=== PATIENT | female | born 1980 | race Hispanic/Latino ===

== ENCOUNTER 2018-03-04 22:13 | Emergency (ER) | payer BC ==
[2018-03-04 22:24] VITALS: O2SAT 100
[2018-03-05 00:25] LABS: ALB/GLOB RATIO 1.4 (1.0-2.1); ALBUMIN 4.5 g/dL (3.5-5.0); ALT/SGPT 17 U/L (9-52); AST/SGOT 24 U/L (14-36); BASO # 0.1 K/uL (0.0-0.2); BASO % 0.8 % (0.0-2.0); BLOOD UREA NITROGEN 11 mg/dl (7-17); CALCIUM 9.5 mg/dL (8.4-10.2); EOS # 0.1 K/uL (0.0-0.7); EOS % 0.8 % (0.0-4.0); GFR NON-AFRICAN AMERICAN > 60; HEMOGLOBIN 14.6 g/dL (12.0-16.0); LYMPH # 2.1 K/uL (1.0-4.3); LYMPH % 28.4 % (20.0-40.0); MEAN CELL VOLUME 98.8 fl (81.0-99.0); MEAN CORPUSCULAR HEMOGLOBIN 33.8 pg (27.0-31.0); MEAN CORPUSCULAR HGB CONC 34.2 g/dL (33.0-37.0); MEAN PLATELET VOLUME 8.5 fl (7.2-11.7); MONO # 0.7 K/uL (0.0-0.8); MONO % 9.1 % (0.0-10.0); NEUT # 4.5 K/uL (1.8-7.0); NEUT % 60.9 % (50.0-75.0); RBC 4.31 Mil/uL (3.80-5.20); RED CELL DISTRIBUTION WIDTH 12.7 % (11.5-14.5); WHITE BLOOD COUNT 7.4 K/uL (4.8-10.8)
[2018-03-05 00:27] LABS: INR 0.9; PROTHROMBIN TIME 10.3 Seconds (9.8-13.1)
[2018-03-05 00:30] LABS: PARTIAL THROMBOPLASTIN TIME 24.8 Seconds (25.6-37.1)
--- NOTE | 2018-03-05 01:25 | ED PDOC ---
Syncope/Near Syncope/Dizziness Time Seen by Provider: 03/04/18 22:56 Chief Complaint (Nursing): Syncope Chief Complaint (Provider): Syncope, Headache History Per: Patient History/Exam Limitations: no limitations Onset/Duration Of Symptoms: Hrs (x2) Current Symptoms Are (Timing): Still Present Number Of Syncopal Episodes: 1 Fall Associated With With Symptoms: No Pain Scale Rating Of: 10 Additional Complaint(s): Debbie Vargas is a 38 year old female, with a past medical history of Hypokalemia, who presents to the emergency department for evaluation of a frontal headache ongoing for the last x2 hrs. Patient describes it as a throbbing pressure and associated with photophobia, nausea, and blurred vision. Patient states blurred vision resolved upon arrival in ED. Patient reports she was at a bar with and after drinking x2 glasses of wine she developed sudden onset of symptoms. She felt faint and her states that she syncopized into his arms for 20 to 30 seconds and then came back to it. She reports a history of similar symptoms x15 years ago, she was evaluated at the time and was told everything was unremarkable except for low potassium levels. She took no medications prior to arrival. Patient states symptoms have worsened in the last x30 minutes. She denies any fever, chills, history of recurrent headaches, dizziness, chest pain, shortness of breath, abdominal pain, diarrhea , neck pain or stiffness, or family history of aneurysms. No further medical complaints. LMP: 02/23 PMD: None provided. Past Medical History Reviewed: Historical Data, Nursing Documentation, Vital Signs Vital Signs: Last Vital Signs Temp 99.1 F 03/04/18 22:18 Pulse 78 03/04/18 22:18 Resp 17 03/04/18 22:18 BP 115/72 03/04/18 22:18 Pulse Ox 100 03/04/18 22:18 - Medical History Other PMH: hypokalemia - Surgical History Other surgeries: left ovary removal - Family History Family History: States: Unknown Family Hx - Social History Current smoker - smoking cessation education provided: No Alcohol: Social Drugs: Denies - Home Medications Home Medications: Ambulatory Orders Medication Instructions Recorded Naproxen 500 mg PO BID PRN #20 tab 03/05/18 Potassium Chloride 20 meq PO DAILY #7 tab 03/05/18 - Allergies Allergies/Adverse Reactions: Allergies Allergy/AdvReac Type Severity Reaction Status Date / Time Sulfa (Sulfonamide Allergy RASH Verified 03/04/18 22:18 Antibiotics) Review of Systems ROS Statement: Except As Marked, All Systems Reviewed And Found Negative Constitutional: Negative for: Fever, Chills Cardiovascular: Negative for: Chest Pain Respiratory: Negative for: Shortness of Breath Gastrointestinal: Positive for: Nausea. Negative for: Abdominal Pain, Diarrhea Musculoskeletal: Negative for: Neck Pain Neurological: Positive for: Headache (FRONTAL ). Negative for: Dizziness Physical Exam - Reviewed Nursing Documentation Reviewed: Yes Vital Signs Reviewed: Yes - Physical Exam Comments: GENERAL APPEARANCE: Patient is awake, alert, oriented x 3, in mild painful distress. Uncomfortable appearing. SKIN: Warm, dry; (-) cyanosis; (-) rash. HEAD: (-) scalp swelling or tenderness, (-) temporal artery tenderness. EYES: (-) nystagmus (-) conjunctival pallor, (-) scleral icterus. (+) Photophobia ENMT: Pharynx clear, uvula midline (-) erythema (-) exudate. TMs nonbulging and nonerythematous. Nares patent (-) rhinorrhea. (-) sinus tenderness; mucous membranes are moist. NECK: Supple (+) bilateral paracervical tenderness, (-) stiffness, (-) meningismus, (-) lymphadenopathy. CHEST AND RESPIRATORY: (-) rales, (-) rhonchi, (-) wheezes; breath sounds equal bilaterally. Respirations even and nonlabored, speaking in full sentences. HEART AND CARDIOVASCULAR: (-) irregularity ABDOMEN AND GI: Soft; (-) tenderness (-) guarding (-) distention. EXTREMITIES: (-) deformity. NEURO AND PSYCH: Mental status as above. cuff presser: Pupils equal and reactive; EOMI and painless; (-) facial asymmetry; tongue midline. Strength and smile symmetric. (-) facial asymmetry (-) aphasia. Speech: clear. - Laboratory Results Result Diagrams: 03/05/18 00:05 03/05/18 00:05 Urine POC: Negative - ECG O2 Sat by Pulse Oximetry: 100 (RA) Pulse Ox Interpretation: Normal Medical Decision Making Medical Decision Making: Time: 22:55 Initial Impression: headache, syncope, probable migraine Initial Plan: --Head w/o contrast [CT] --EKG --Alcohol serum --CMP --Drug screen, urine --Urine --Urine dipstick --CBC w/ differential --PTT --PT --Reglan 10 mg IVP --Toradol 30 mg IVP --Tylenol 650mg PO --Zofran ODT 4 mg IVP --Blood culture --Reevaluation 0100 Patient with one episode of vomiting in ED. Reglan 10mg IVP given. Pending CT read. EKG: NSR @ 74bpm (-) ST elevation, QTc 479 0135 Labs reviewed. CBC unremarkable. CMP (+) hypokalemia 2.9, otherwise unremarkable. Patient notes a history of hypokalemia in the past with similar values. 40mEq potassium chloride ordered. 0150 EXAM: CT Head Without Intravenous Contrast EXAM DATE/TIME: 03/05/2018 12:01 AM CLINICAL HISTORY: 38 years old, female; Pain; Headache; Additional info: Syncope, headache TECHNIQUE: Axial computed tomography images of the head/brain without intravenous contrast. 300 images are submitted. Axial reformatted images are submitted in brain and bone windows. All CT scans at this facility use at least one of these dose optimization techniques: automated exposure control; mA and/or kV adjustment per patient size (includes targeted exams where dose is matched to clinical indication); or iterative reconstruction. Coronal and sagittal reformatted images were created and reviewed. COMPARISON: No relevant prior studies available. FINDINGS: Brain: Prominent cisterna magna. Minimal patchy periventricular hypodensity. Ventricles: Normal. No ventriculomegaly. Bones/joints: Normal. No acute fracture. Sinuses: Normal as visualized. No acute sinusitis. Mastoid air cells: Normal as visualized. No mastoid effusion. Orbits: Globe and lens are intact. Soft tissues: Normal. IMPRESSION: No evidence of an acute intracranial hemorrhage, midline shift or mass effect is identified. Thank you for allowing us to participate in the care of your patient. Dictated and Authenticated by: Jen Magdaleno MD 03/05/2018 1:48 AM Eastern Time ([place] & [place]) On re-evaluation, patient reports headache currently a 4/10. Reports resolution of nausea at this time. Tolerating PO intake at this time. Toradol 30mg IVP ordered. 0305 Patient reports headache is 1/10 at present. No other complaints and states she feels much improved. Patent states she will call insurance company to have a PMD assigned to her to follow up. On exam, patient remains AAOx3, in no acute distress. Lungs clear to auscultation, cardiac RRR, abdomen soft, non-tender, repeat neuro exam shows no focal findings. Ambulatory with a steady, unassisted gait in ED. VSS, stable for discharge. Lab/Diagnostic results d/w the patient in great detail. Diagnosis of headache, nausea, vomiting, syncope to consider migraine; hypokalemia d/w the patient. Based on history, exam and diagnostic results, plan will be for outpatient follow up. Patient instructed to follow-up with pmd / referral provided / the clinic in 1- 2 days without fail. Advised to take medication as prescribed. Return to the emergency room at any time for any new or worsening symptoms. Patient states she fully agrees with and understands discharge instructions. States that she agrees with the plan and disposition. Verbalized and repeated discharge instructions and plan. I have given the patient opportunity to ask any additional questions. ----- Scribe Attestation: Documented by Ned Florence, acting as a scribe for Aliyah Alvarez PA-C. Provider Scribe Attestation: All medical record entries made by the Scribe were at my direction and personally dictated by me. I have reviewed the chart and agree that the record accurately reflects my personal performance of the history, physical exam, medical decision making, and the department course for this patient. I have also personally directed, reviewed, and agree with the discharge instructions and disposition. Disposition - Clinical Impression Clinical Impression: Syncope, Migraine headache, Nausea and vomiting, Hypokalemia - Patient ED Disposition Is Patient to be Admitted: No Counseled Patient/Family Regarding: Studies Performed, Diagnosis, Need For Followup, Rx Given - Disposition Referrals: Carol Darling MD [Medical Doctor] - Disposition: Routine/Home Disposition Time: 03:07 Condition: STABLE Additional Instructions: The emergency medical care you received today was directed towards the acute presenting symptoms. If you were prescribed any medication, please fill it and give as directed. It may take several days for your symptoms to resolve. Return to the Emergency Department at any time if symptoms worsen, do not improve, or if any other problems arise. Please contact your doctor in 2 days for re-evaluation and follow up / or call one of the physicians/clinics you have been referred to that are listed on the Patient Visit Information form that is included in your discharge packet. Bring any paperwork you were given at discharge with you along with any medications to your follow up visit. Our treatment cannot replace ongoing medical care by a primary care provider (PCP) outside of the emergency department. Prescriptions: Naproxen 500 mg PO BID PRN #20 tab PRN Reason: Headache Potassium Chloride 20 meq PO DAILY #7 tab Instructions: Syncope (Fainting), Hypokalemia, Migraine Headache (DC), High Potassium Diet, Nausea and Vomiting, Adult Forms: [employer] (Latvian) Print Language: KOREAN - POA Present On Arrival: None Results - Lab Results Lab Results: 03/05/18 03/05/18 03/05/18 00:05 00:05 00:05 WBC 7.4 RBC 4.31 Hgb 14.6 Hct 42.6 MCV 98.8 MCH 33.8 H MCHC 34.2 RDW 12.7 Plt Count 279 MPV 8.5 Neut % (Auto) 60.9 Lymph % (Auto) 28.4 Wayne % (Auto) 9.1 Eos % (Auto) 0.8 Baso % (Auto) 0.8 Neut # (Auto) 4.5 Lymph # (Auto) 2.1 Wayne # (Auto) 0.7 Eos # (Auto) 0.1 Baso # (Auto) 0.1 PT 10.3 INR 0.9 APTT 24.8 L Sodium 139 Potassium 2.9 L Chloride 103 Carbon Dioxide 23 Anion Gap 16 BUN 11 Creatinine 0.7 Est GFR ( Amer) > 60 Est GFR (Non-Af Amer) > 60 POC Glucose (mg/dL) Random Glucose 88 Calcium 9.5 Total Bilirubin 0.5 AST 24 ALT 17 Alkaline Phosphatase 47 Total Protein 7.8 Albumin 4.5 Globulin 3.3 Albumin/Globulin Ratio 1.4 Alcohol, Quantitative 43 H 09/13/18 22:20 WBC RBC Hgb Hct MCV MCH MCHC RDW Plt Count MPV Neut % (Auto) Lymph % (Auto) Wayne % (Auto) Eos % (Auto) Baso % (Auto) Neut # (Auto) Lymph # (Auto) Wayne # (Auto) Eos # (Auto) Baso # (Auto) PT INR APTT Sodium Potassium Chloride Carbon Dioxide Anion Gap BUN Creatinine Est GFR ( Amer) Est GFR (Non-Af Amer) POC Glucose (mg/dL) 94 Random Glucose Calcium Total Bilirubin AST ALT Alkaline Phosphatase Total Protein Albumin Globulin Albumin/Globulin Ratio Alcohol, Quantitative
[2018-03-05] MEDS ORDERED: Potassium Chloride 20 mEq ER Tab PO ONE ×2 (01:36→02:30)
[2018-03-05 02:17] VITALS: BP 117/59; PULSE 83; RESP 19; TEMP 98.3
--- NOTE | 2018-03-05 08:44 | CARD ---
APPROVED REPORT Date of service: 03/05/2018 <Conclusion> Normal sinus rhythm Septal infarct, age undetermined Abnormal ECG
--- NOTE | 2018-03-05 09:53 | CT ---
Date of service: 03/05/2018 PROCEDURE: CT HEAD WITHOUT CONTRAST. HISTORY: syncope, headache COMPARISON: None available. TECHNIQUE: Axial computed tomography images were obtained through the head/brain without intravenous contrast. Radiation dose: Total exam DLP = 886.70 mGy-cm. This CT exam was performed using one or more of the following dose reduction techniques: Automated exposure control, adjustment of the mA and/or kV according to patient size, and/or use of iterative reconstruction technique. FINDINGS: HEMORRHAGE: No intracranial hemorrhage. BRAIN: Normal pollock-white matter differentiation and density are appreciated throughout the cerebrum and cerebellum with the brainstem appearing unremarkable as well. There is no mass effect. There is no suspicious extra-axial fluid collection and the midline brain anatomy appears diffusely unremarkable. Mildly prominent cisterna magna VENTRICLES: Unremarkable. No hydrocephalus. CALVARIUM: Unremarkable. PARANASAL SINUSES: Unremarkable as visualized. No significant inflammatory changes. MASTOID AIR CELLS: Unremarkable as visualized. No inflammatory changes. OTHER FINDINGS: None. IMPRESSION: Nonacute noncontrast head CT. Consider the potential need for follow-up CT or MRI.
== END 2018-03-05 03:30 | disposition home or self-care (01) ==
LOC: H.ER 22:13
DX: R55 Syncope and collapse (principal); G43.909 Migraine, unspecified, not intractable, without status migrainosus; R11.2 Nausea with vomiting, unspecified; E87.6 Hypokalemia
CPT/HCPCS: 70450; 80053; 81025; 82948; 85025; 85610; 85730; 87040; 93005; 96374; 96375; 99285; G0480; J1885; J2405; J2765